=== PATIENT | male | born 1970 ===

== ENCOUNTER 2021-05-30 11:23 | Emergency (ER) | payer MEDICAID ==
[2021-05-30] MEDS ORDERED: Acetaminophen 500 MG Tab PO ONE (12:37)
[2021-05-30] MEDS ORDERED: LORazepam 1 MG Tab PO ONE ×2 (12:42→13:21)
--- NOTE | 2021-05-30 12:43 | EDM.PDOCBH ---
<Siva Sanderson - Last Filed: 05/30/21 18:12> ED HPI GENERAL MEDICAL PROBLEM - General Chief Complaint: Behavioral/Psych Stated Complaint: PSYCH EVAL Time Seen by Provider: 05/30/21 12:20 - Related Data Allergies Allergy/AdvReac Type Severity Reaction Status Date / Time No Known Allergies Allergy Verified 05/30/21 11:51 Home Meds: Home Meds LORazepam [Ativan] 0.5 mg PO BID PRN #5 tablet 05/31/21 [Rx] COURSE, BEHAVIORAL HEALTH COMP - Course Re-Assessment/Re-Exam: 05/30/21 18:00 Dr. Sanderson -I am assuming care of the patient at this time from Dr. Damon. We are in the process of trying to contact the treatment facility in [place] to see if they are able to accept the patient early. The patient is not homicidal or suicidal so he is not holdable, so if he chooses to leave we cannot stop him. This is unlikely as the patient is homeless and has nowhere to go, especially with the temperature outside being only 10F. Departure - Departure Disposition: Home, Self-Care 01 Clinical Impression: Agitation - Discharge Information Prescriptions: LORazepam [Ativan] 0.5 mg PO BID PRN #5 tablet PRN Reason: Anxiety Referrals: PCP,None [Primary Care Provider] - Forms: ED Department Discharge Additional Instructions: Take lorazepam as needed for agitation or anxiety every 12 hrs. Keep your reservation for Wednesday for treatment in [place]. <Jalil Damon - Last Filed: 05/31/21 08:19> ED HPI GENERAL MEDICAL PROBLEM - General Source of Information: Reports: Patient, RN. Denies: Old Records History Limitations: Reports: Altered Mental Status, Other (no old records) - History of Present Illness INITIAL COMMENTS - FREE TEXT/NARRATIVE: 51 yo male new in our area from [place] is brought into the ER and dropped off after "taking 2 hits of meth" about 4 d ago. 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 Has a mild JONES. Denies prior use of meth. Does not admit to any other ingestions. Has no thoughts of self-harm. Got out of the local assisted a few days ago after 70 days. May have a psych appt in [place] in about a week to 10 days per his report. Admits to marijuana use. Was temporarily staying with someone he was in assisted with due to being homeless and he got acting goofy today and she and her family became concerned and brought him here. Called [facility], no medical records there. His mother lives near [place] Onset: Sudden Onset Date: 05/26/21 Duration: Day(s): (5), Constant Location: Reports: Generalized Quality: Reports: Ache (headache) Severity: Mild Improves with: Reports: None Worsens with: Reports: Other (? 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 (see below) (none) Past Medical History Neurological History: Reports: Other (See Below) Other Neuro History: confusion Psychiatric History: Reports: ADHD, Anxiety, Depression Social & Family History - Tobacco Use Tobacco Use Status *Q: Current Every Day Tobacco User Years of Tobacco use: 20 Packs/Tins Daily: 1 - Caffeine Use Caffeine Use: Reports: Coffee - Recreational Drug Use Recreational Drug Use: Yes Drug Use in Last 12 Months: Yes Recreational Drug Type: Reports: Amphetamines (Speed), Marijuana/Hashish Recreational Drug Use Frequency: Daily ED ROS GENERAL - Review of Systems Review Of Systems: See Below Constitutional: Reports: No Symptoms HEENT: Reports: No Symptoms Respiratory: Reports: No Symptoms Cardiovascular: Reports: No Symptoms GI/Abdominal: Reports: No Symptoms : Reports: No Symptoms Musculoskeletal: Reports: No Symptoms Skin: Reports: No Symptoms Neurological: Reports: Numbness (of both feet, not new) Psychiatric: Reports: Agitation, Anxiety. Denies: Depression, Suicidal Ideation ED EXAM, BEHAVIORAL HEALTH - Physical Exam Exam: See Below Exam Limited By: No Limitations General Appearance: Alert, WD/WN, Mild Distress Eye Exam: Bilateral Eye: Normal Inspection Ears: Normal External Exam, Normal Canal, Hearing Grossly Normal, Normal TMs Nose: Normal Inspection, No Blood Throat/Mouth: Normal Lips, Normal Oropharynx, Normal Voice, No Airway Compromis e, Other (edentulous) Head: Atraumatic, Normocephalic Neck: Normal Inspection Respiratory/Chest: No Respiratory Distress, Lungs Clear, Normal Breath Sounds, No Accessory Muscle Use Cardiovascular: Regular Rate, Rhythm, No Edema GI/Abdominal: Soft, Non-Tender Back Exam: Normal Inspection. No: CVA Tenderness (R), CVA Tenderness (L) Extremities: Normal Inspection, Normal Range of Motion, Non-Tender, No Pedal Edema Neurological: Alert, CN II-XII Intact, Oriented x 3. No: Normal Mood/Affect, Normal Cognition Psychiatric: Alert, Oriented, Restless, Agitated (mild). No: Normal Affect, Normal Cognition, Normal Mood, Depressed Mood, Flat Affect, Uncooperative, Homicidal Thoughts, Suicidal Thoughts Skin Exam: Warm, Dry, Intact, Normal color, No rash COURSE, BEHAVIORAL HEALTH COMP - Course Vital Signs: Last Vital Signs Temp 36.1 C 05/30/21 11:49 Pulse 75 05/30/21 11:49 Resp 22 H 05/30/21 11:49 BP 163/95 H 05/30/21 11:49 Pulse Ox 96 05/30/21 11:44 Orders, Labs, Meds: Laboratory Tests 05/30/21 05/30/21 05/30/21 Range/Units 12:15 12:15 12:22 WBC (4.5-11.0) K/uL RBC (4.30-5.90) M/uL Hgb (12.0-15.0) g/dL Hct (40.0-54.0) % MCV (80-98) fL MCH (27-31) pg MCHC (32-36) % Plt Count (150-400) K/uL Sodium 125 L (140-148) mmol/L Potassium 4.0 (3.6-5.2) mmol/L Chloride 88 L (100-108) mmol/L Carbon Dioxide 26 (21-32) mmol/L Anion Gap 15.0 H (5.0-14.0) mmol/L BUN 3 L D (7-18) mg/dL Creatinine 1.2 (0.8-1.3) mg/dL Est Cr Clr Drug Dosing 75.20 mL/min Estimated GFR (MDRD) > 60 (>60) Glucose 114 H (74-106) mg/dL Calcium 9.4 (8.5-10.1) mg/dL Total Bilirubin 1.0 (0.2-1.0) mg/dL AST 23 (15-37) U/L ALT 26 (12-78) U/L Alkaline Phosphatase 98 (46-116) U/L Total Protein 8.2 (6.4-8.2) g/dL Albumin 4.6 (3.4-5.0) g/dL Globulin 3.6 H (2.3-3.5) g/dL Albumin/Globulin Ratio 1.3 (1.2-2.2) TSH, Ultra Sensitive (0.358-3.740) uIU/mL Urine Color Yellow (YELLOW) Urine Appearance Clear (CLEAR) Urine pH 6.0 (5.0-8.0) Ur Specific [place] 1.015 (1.008-1.030) Urine Protein Negative (NEGATIVE) mg/dL Urine Glucose (UA) Negative (NEGATIVE) mg/dL Urine Ketones Negative (NEGATIVE) mg/dL Urine Occult Blood Negative (NEGATIVE) Urine Nitrite Negative (NEGATIVE) Urine Bilirubin Negative (NEGATIVE) Urine Urobilinogen 2.0 H (0.2-1.0) EU/dL Ur Leukocyte Esterase Negative (NEGATIVE) Urine RBC Not seen (0-5) Urine WBC Not seen (0-5) Ur Epithelial Cells Rare Amorphous Sediment Rare Urine Bacteria Not seen Urine Mucus Not seen Urine Opiates Screen Negative (NEGATIVE) Ur Oxycodone Screen Negative (NEGATIVE) Urine Methadone Screen Negative (NEGATIVE) Ur Propoxyphene Screen Negative (NEGATIVE) Ur Barbiturates Screen Negative (NEGATIVE) Ur Tricyclics Screen Negative (NEGATIVE) Ur Phencyclidine Scrn Negative (NEGATIVE) Ur Amphetamine Screen Negative (NEGATIVE) U Methamphetamines Scrn Negative (NEGATIVE) Urine MDMA Screen Negative (NEGATIVE) U Benzodiazepines Scrn Negative (NEGATIVE) U Cocaine Metab Screen Negative (NEGATIVE) U Marijuana (THC) Screen Presumptive positive H (NEGATIVE) Ethyl Alcohol mg/dL 05/30/21 05/30/21 05/30/21 Range/Units 12:22 12:22 12:22 WBC 15.1 H (4.5-11.0) K/uL RBC 5.25 (4.30-5.90) M/uL Hgb 15.5 H (12.0-15.0) g/dL Hct 44.1 (40.0-54.0) % MCV 84 (80-98) fL MCH 30 (27-31) pg MCHC 35 (32-36) % Plt Count 389 (150-400) K/uL Sodium (140-148) mmol/L Potassium (3.6-5.2) mmol/L Chloride (100-108) mmol/L Carbon Dioxide (21-32) mmol/L Anion Gap (5.0-14.0) mmol/L BUN (7-18) mg/dL Creatinine (0.8-1.3) mg/dL Est Cr Clr Drug Dosing mL/min Estimated GFR (MDRD) (>60) Glucose (74-106) mg/dL Calcium (8.5-10.1) mg/dL Total Bilirubin (0.2-1.0) mg/dL AST (15-37) U/L ALT (12-78) U/L Alkaline Phosphatase (46-116) U/L Total Protein (6.4-8.2) g/dL Albumin (3.4-5.0) g/dL Globulin (2.3-3.5) g/dL Albumin/Globulin Ratio (1.2-2.2) TSH, Ultra Sensitive 1.014 (0.358-3.740) uIU/mL Urine Color (YELLOW) Urine Appearance (CLEAR) Urine pH (5.0-8.0) Ur Specific [place] (1.008-1.030) Urine Protein (NEGATIVE) mg/dL Urine Glucose (UA) (NEGATIVE) mg/dL Urine Ketones (NEGATIVE) mg/dL Urine Occult Blood (NEGATIVE) Urine Nitrite (NEGATIVE) Urine Bilirubin (NEGATIVE) Urine Urobilinogen (0.2-1.0) EU/dL Ur Leukocyte Esterase (NEGATIVE) Urine RBC (0-5) Urine WBC (0-5) Ur Epithelial Cells Amorphous Sediment Urine Bacteria Urine Mucus Urine Opiates Screen (NEGATIVE) Ur Oxycodone Screen (NEGATIVE) Urine Methadone Screen (NEGATIVE) Ur Propoxyphene Screen (NEGATIVE) Ur Barbiturates Screen (NEGATIVE) Ur Tricyclics Screen (NEGATIVE) Ur Phencyclidine Scrn (NEGATIVE) Ur Amphetamine Screen (NEGATIVE) U Methamphetamines Scrn (NEGATIVE) Urine MDMA Screen (NEGATIVE) U Benzodiazepines Scrn (NEGATIVE) U Cocaine Metab Screen (NEGATIVE) U Marijuana (THC) Screen (NEGATIVE) Ethyl Alcohol < 3 mg/dL Medications Discontinued Medications Generic Name Dose Route Start Last Admin Trade Name Freq PRN Reason Stop Dose Admin Acetaminophen 1,000 mg 05/30/21 12:37 05/30/21 12:49 Acetaminophen 500 Mg Tab PO 05/30/21 12:38 1,000 mg ONETIME ONE Administration Acetaminophen 1,000 mg 05/31/21 08:01 Acetaminophen 500 Mg Tab PO 05/31/21 08:02 ONETIME ONE Sodium Chloride 1,000 mls @ 1,000 mls/hr 05/30/21 13:18 05/30/21 13:35 Normal Saline IV 05/30/21 14:17 1,000 mls/hr .BOLUS ONE Administration Lorazepam 1 mg 05/30/21 12:42 05/30/21 12:49 Lorazepam 1 Mg Tab PO 05/30/21 12:43 1 mg ONETIME ONE Administration Lorazepam 1 mg 05/30/21 13:21 05/30/21 13:34 Lorazepam 1 Mg Tab PO 05/30/21 13:22 1 mg ONETIME ONE Administration Lorazepam 0.5 mg 05/31/21 08:14 Lorazepam 0.5 Mg Tab PO 05/31/21 08:15 ONETIME ONE Olanzapine 10 mg 05/30/21 16:58 05/30/21 18:13 Olanzapine 10 Mg Vial IM 05/30/21 16:59 10 mg ONETIME ONE Administration Re-Assessment/Re-Exam: At times seems fairly lucid, not sure if what he is telling us is true or accurate. When alone spends a lot of time talking to himself. Had to empty the room he was in due to his destructive behavior. Medical Clearance: 05/31/21 08:17 Is much calmer now after a long sleep. Will discharge with a few Ativan to get him through the weekend. Departure - Departure Time of Disposition: 08:40 Condition: Fair - Discharge Information *PRESCRIPTION DRUG MONITORING PROGRAM REVIEWED*: No *COPY OF PRESCRIPTION DRUG MONITORING REPORT IN PATIENT [place]OR[place]: No
[2021-05-30] MEDS ORDERED: Sodium Chloride 0.9% 1,000 ML IV ONE (13:18)
[2021-05-30] MEDS ORDERED: OLANZapine 10 MG Vial IM ONE (16:58)
[2021-05-31] MEDS ORDERED: Acetaminophen 500 MG Tab PO ONE (08:01)
[2021-05-31] MEDS ORDERED: LORazepam 0.5 MG Tab PO ONE (08:14)
== END 2021-05-31 09:30 | disposition home or self-care (01) ==
LOC: JP.ED 11:23
DX: R45.1 Restlessness and agitation (principal); F17.210 Nicotine dependence, cigarettes, uncomplicated
CPT/HCPCS: 36415; 80053; 80305; 80307; 81001; 84443; 85027; 96372; 99284; A9270; J3490; J7030